=== PATIENT | female | born 1990 | race Caucasian/White ===

== ENCOUNTER 2018-06-04 13:25 | Emergency (ER) | payer OTHER, SELFPAY ==
[2018-06-04 13:29] VITALS: BP 110/71; PULSE 68; RESP 15; TEMP 36.2; O2SAT 100; BMI 25.0
--- NOTE | 2018-06-04 15:25 | ED.NECK ---
HPI - Neck Pain/Injury <Angie Medina PA-C - Last Filed: 06/04/18 21:43> General Chief Complaint: Neck Pain/Injury Stated Complaint: SWELLING AND PAIN ON LEFT SIDE OF NECK Time Seen by Provider: 06/04/18 15:25 Source: patient Mode of arrival: ambulatory Limitations: no limitations History of Present Illness HPI Narrative: This 27-year-old male comes in today due to increasing left-sided neck pain and swelling. She states that she was seen at another local ED less than 2 weeks ago due to worsening pain and swelling that had actually started about 2 months prior. She is being worked up for Tanner's thyroiditis, and states her TSH has been variable, last was 0.2 3 weeks ago. She states at her ED visit, she was told this was thyroiditis and told to start anti-inflammatory. She has been taking naproxen regularly but feels like this has gradually worsened, especially in the last couple of days. She states that she cannot sleep on that side due to the pain. She states that at times it radiates up into her ear. She denies any new trauma or recent illness or upper respiratory symptoms. She has not had fever. She has had ongoing palpitations with known PVCs since she was diagnosed with hyperthyroidism but states this has actually improved. She states that in addition to her PCP and recent endocrinology evaluation, she has been seeing a coal wheeler and was prescribed naltrexone at a low dose to help with antibody formation. She has been taking a number of herbal supplements for the last month as well. She has not started any new medications since then. She denies possibility of , states she has IUD in place Related Data Allergies Allergy/AdvReac Type Severity Reaction Status Date / Time No Known Drug Allergies Allergy Verified 06/04/18 13:29 Review of Systems <Angie Medina PA-C - Last Filed: 06/04/18 21:43> Review of Systems All systems reviewed & are unremarkable except as noted in HPI and below Exam <Angie Medina PA-C - Last Filed: 06/04/18 21:43> Narrative Exam Narrative: GENERAL APPEARANCE: Patient sitting comfortably, in no distress. HEAD: No sinus TTP. EYES: PERRL, EOMI. EARS: Normal auditory canals, TMS intact with normal light reflexes. ORAL CAVITY: Normal oropharynx. THROAT: Clear. NECK/THYROID: Neck supple, full range of motion, small anterior cervical nodes. Thyroid is larger on the left without discrete palpable nodule, tender in the L. upper pole LUNGS: Clear to auscultation bilaterally, no cough on exam. HEART: RRR without murmur, nl S1, S2, no S3 or S4. EXTREMITIES: No cyanosis or edema NEUROLOGIC: Patient is alert and oriented with normal speech and coordination Initial Vital Signs Initial Vital Signs: Vital Signs Temperature 97.2 F L 06/04/18 13:29 Pulse Rate 68 06/04/18 13:29 Respiratory Rate 15 06/04/18 13:29 Blood Pressure 110/71 06/04/18 13:29 Pulse Oximetry 100 06/04/18 13:29 <DO Zoila Fischer Last Filed: 06/05/18 07:25> Initial Vital Signs Initial Vital Signs: Vital Signs Temperature 97.2 F L 06/04/18 13:29 Pulse Rate 68 06/04/18 13:29 Respiratory Rate 15 06/04/18 13:29 Blood Pressure 110/71 06/04/18 13:29 Pulse Oximetry 100 06/04/18 13:29 Course <Angie Medina PA-C - Last Filed: 06/04/18 21:43> Additional Information: Patient is concerned with worsening pain and difficulty with sleeping on that side, especially in the last couple of days. No significant findings on exam, however elected ultrasound to evaluate for acute abscess or other pain source that may not be detected. None found per regulatory technician. After waiting a long time, she elected to discharge home and advised I would call her if any changes based on radiology report. She did call back for results later which were essentially normal. I advised her to increase her naproxen to 2 tabs b.i.d. and follow up with PCP next week. Orders Ordered: ED Orders 06/04/18 15:49 US thyroid Stat Vital Signs - 8 hr 06/04/18 16:20 06/04/18 17:28 Temperature 97.6 F 97.6 F Pulse Rate 50 L 49 L Respiratory Rate 16 16 Blood Pressure [Left Arm] 99/73 106/70 Pulse Oximetry 99 100 <DO Zoila Fischer Last Filed: 06/05/18 07:25> Orders Ordered: ED Orders 06/04/18 15:49 US thyroid Stat Vital Signs - 8 hr 06/04/18 16:20 06/04/18 17:28 Temperature 97.6 F 97.6 F Pulse Rate 50 L 49 L Respiratory Rate 16 16 Blood Pressure [Left Arm] 99/73 106/70 Pulse Oximetry 99 100 MDM - Neck Pain/Injury <Angie Medina PA-C - Last Filed: 06/04/18 21:43> Imaging Data thyroid: Radiologist's impression: View Report History [address] [address] Ultrasound Report Signed Patient: Tai West MR#: [id number] : 1990 Acct:[id number] Age/Sex: 27 / F Date of Service: 06/04/18 Loc: ED Accession Number: [id number] Procedure: US thyroid Ordering Provider: Angie Medina P.A-C PROCEDURE: US THYROID INDICATIONS: NODULARITY WITH WORSENING PAIN TECHNIQUE: Real-time scanning was performed of the thyroid gland, with image documentation. COMPARISON: None. FINDINGS: Right: Thyroid lobe measures 4.8 x 1.4 x 1.7 cm, and is homogeneous in echotexture. Left: Thyroid lobe measures 5.4 x 1.5 x 1.4 cm, and is homogenous in echotexture. Isthmus: 3-4 mm thick. No discrete thyroid nodules identified. No abnormality seen in the area of left neck pain IMPRESSION: No thyroid nodule. No sonographic mass or fluid collection seen in the area of left neck pain/palpable abnormality Dictated by: Devonte Edward M.D. on 06/04/2018 at 18:25 Approved by: Devonte Edward M.D. on 06/04/2018 at 18:27 Discharge Plan Departure Patient Disposition: Home, Self-Care Clinical Impression: Subacute thyroiditis Discharge Date/Time: 06/04/18 18:00 Interventions: ED Discharge Assessment Last Done: 06/04/18 18:00 Activity Restrictions/Additional Instructions: We know from your history that you have fluctuating thyroid hormone levels and thyroid inflammation. The biodiesel processing technician did not find any acute problems such as a mass or abscess or anything to explain your worsening pain today. The dose of Aleve that you have been on is likely not strong enough to help this inflammation. Please increase this to 2 tablets twice daily routinely. Call your PCP on Wednesday to set up follow-up as you may wish to consider a course of oral steroids if not improving. You should consider stopping your other medicines and natural supplements as it is not clear whether they could interfere with this. You should return if you have any acutely worsening symptoms such as difficulty speaking, new swelling or worsening pain. Referrals: Candis Sumner ARNP [Primary Care Provider] - <Javan Alexander DO - Last Filed: 06/05/18 07:25> Cosign ED Attending Enedina Attestation: I was available for consultation during this patient's emergency department encounter
--- NOTE | 2018-06-04 15:49 | DI.US.S_ITS ---
PROCEDURE: US THYROID INDICATIONS: NODULARITY WITH WORSENING PAIN TECHNIQUE: Real-time scanning was performed of the thyroid gland, with image documentation. COMPARISON: None. FINDINGS: Right: Thyroid lobe measures 4.8 x 1.4 x 1.7 cm, and is homogeneous in echotexture. Left: Thyroid lobe measures 5.4 x 1.5 x 1.4 cm, and is homogenous in echotexture. Isthmus: 3-4 mm thick. No discrete thyroid nodules identified. No abnormality seen in the area of left neck pain IMPRESSION: No thyroid nodule. No sonographic mass or fluid collection seen in the area of left neck pain/palpable abnormality Dictated by: Devonte Edward M.D. on 06/04/2018 at 18:25 Approved by: Devonte Edward M.D. on 06/04/2018 at 18:27
--- NOTE | 2018-06-04 15:52 | ED_ITS ---
HPI - Neck Pain/Injury <Angie Medina PA-C - Last Filed: 06/04/18 21:43> General Chief Complaint: Neck Pain/Injury Stated Complaint: SWELLING AND PAIN ON LEFT SIDE OF NECK Time Seen by Provider: 06/04/18 15:25 Source: patient Mode of arrival: ambulatory Limitations: no limitations History of Present Illness HPI Narrative: This 27-year-old male comes in today due to increasing left- sided neck pain and swelling. She states that she was seen at another local ED less than 2 weeks ago due to worsening pain and swelling that had actually started about 2 months prior. She is being worked up for Tanner's thyroiditis, and states her TSH has been variable, last was 0.2 3 weeks ago. She states at her ED visit, she was told this was thyroiditis and told to start anti-inflammatory. She has been taking naproxen regularly but feels like this has gradually worsened, especially in the last couple of days. She states that she cannot sleep on that side due to the pain. She states that at times it radiates up into her ear. She denies any new trauma or recent illness or upper respiratory symptoms. She has not had fever. She has had ongoing palpitations with known PVCs since she was diagnosed with hyperthyroidism but states this has actually improved. She states that in addition to her PCP and recent endocrinology evaluation, she has been seeing a behavioral health tech and was prescribed naltrexone at a low dose to help with antibody formation. She has been taking a number of herbal supplements for the last month as well. She has not started any new medications since then. She denies possibility of , states she has IUD in place Related Data Allergies Allergy/AdvReac Type Severity Reaction Status Date / Time No Known Drug Allergies Allergy Verified 06/04/18 13:29 Review of Systems <Angie Medina PA-C - Last Filed: 06/04/18 21:43> Review of Systems All systems reviewed & are unremarkable except as noted in HPI and below Exam <Angie Medina PA-C - Last Filed: 06/04/18 21:43> Narrative Exam Narrative: GENERAL APPEARANCE: Patient sitting comfortably, in no distress. HEAD: No sinus TTP. EYES: PERRL, EOMI. EARS: Normal auditory canals, TMS intact with normal light reflexes. ORAL CAVITY: Normal oropharynx. THROAT: Clear. NECK/THYROID: Neck supple, full range of motion, small anterior cervical nodes. Thyroid is larger on the left without discrete palpable nodule, tender in the L. upper pole LUNGS: Clear to auscultation bilaterally, no cough on exam. HEART: RRR without murmur, nl S1, S2, no S3 or S4. EXTREMITIES: No cyanosis or edema NEUROLOGIC: Patient is alert and oriented with normal speech and coordination Initial Vital Signs Initial Vital Signs: Vital Signs Temperature 97.2 F L 06/04/18 13:29 Pulse Rate 68 06/04/18 13:29 Respiratory Rate 15 06/04/18 13:29 Blood Pressure 110/71 06/04/18 13:29 Pulse Oximetry 100 06/04/18 13:29 <DO Zoila Fischer Last Filed: 06/05/18 07:25> Initial Vital Signs Initial Vital Signs: Vital Signs Temperature 97.2 F L 06/04/18 13:29 Pulse Rate 68 06/04/18 13:29 Respiratory Rate 15 06/04/18 13:29 Blood Pressure 110/71 06/04/18 13:29 Pulse Oximetry 100 06/04/18 13:29 Course <Angie Medina PA-C - Last Filed: 06/04/18 21:43> Additional Information: Patient is concerned with worsening pain and difficulty with sleeping on that side, especially in the last couple of days. No significant findings on exam, however elected ultrasound to evaluate for acute abscess or other pain source that may not be detected. None found per installation and repair technician. After waiting a long time, she elected to discharge home and advised I would call her if any changes based on radiology report. She did call back for results later which were essentially normal. I advised her to increase her naproxen to 2 tabs b.i.d. and follow up with PCP next week. Orders Ordered: ED Orders 06/04/18 15:49 US thyroid Stat Vital Signs - 8 hr 06/04/18 16:20 06/04/18 17:28 Temperature 97.6 F 97.6 F Pulse Rate 50 L 49 L Respiratory Rate 16 16 Blood Pressure [Left Arm] 99/73 106/70 Pulse Oximetry 99 100 <DO Zoila Fischer Last Filed: 06/05/18 07:25> Orders Ordered: ED Orders 06/04/18 15:49 US thyroid Stat Vital Signs - 8 hr 06/04/18 16:20 06/04/18 17:28 Temperature 97.6 F 97.6 F Pulse Rate 50 L 49 L Respiratory Rate 16 16 Blood Pressure [Left Arm] 99/73 106/70 Pulse Oximetry 99 100 MDM - Neck Pain/Injury <Angie Medina PA-C - Last Filed: 06/04/18 21:43> Imaging Data thyroid: Radiologist's impression: View Report History [address] [address] Ultrasound Report Signed Patient: Tai West MR#: [id number] : 1990 Acct:[id number] Age/Sex: 27 / F Date of Service: 06/04/18 Loc: ED Accession Number: [id number] Procedure: US thyroid Ordering Provider: Angie Medina P.A-C PROCEDURE: US THYROID INDICATIONS: NODULARITY WITH WORSENING PAIN TECHNIQUE: Real-time scanning was performed of the thyroid gland, with image documentation. COMPARISON: None. FINDINGS: Right: Thyroid lobe measures 4.8 x 1.4 x 1.7 cm, and is homogeneous in echotexture. Left: Thyroid lobe measures 5.4 x 1.5 x 1.4 cm, and is homogenous in echotexture. Isthmus: 3-4 mm thick. No discrete thyroid nodules identified. No abnormality seen in the area of left neck pain IMPRESSION: No thyroid nodule. No sonographic mass or fluid collection seen in the area of left neck pain/palpable abnormality Dictated by: Devonte Edward M.D. on 06/04/2018 at 18:25 Approved by: Devonte Edward M.D. on 06/04/2018 at 18:27 Discharge Plan Departure Patient Disposition: Home, Self-Care Clinical Impression: Subacute thyroiditis Discharge Date/Time: 06/04/18 18:00 Interventions: ED Discharge Assessment Last Done: 06/04/18 18:00 Activity Restrictions/Additional Instructions: We know from your history that you have fluctuating thyroid hormone levels and thyroid inflammation. The certified medical technician did not find any acute problems such as a mass or abscess or anything to explain your worsening pain today. The dose of Aleve that you have been on is likely not strong enough to help this inflammation. Please increase this to 2 tablets twice daily routinely. Call your PCP on Wednesday to set up follow-up as you may wish to consider a course of oral steroids if not improving. You should consider stopping your other medicines and natural supplements as it is not clear whether they could interfere with this. You should return if you have any acutely worsening symptoms such as difficulty speaking, new swelling or worsening pain. Referrals: Candis Sumner ARNP [Primary Care Provider] - <Javan Alexander DO - Last Filed: 06/05/18 07:25> Cosign ED Attending Ened[place] Attestation: I was available for consultation during this patient's emergency department encounter
[2018-06-04 16:20] VITALS: BP 99/73; PULSE 50; RESP 16; TEMP 36.4; O2SAT 99
[2018-06-04 17:28] VITALS: BP 106/70; PULSE 49; RESP 16; TEMP 36.4; O2SAT 100
== END 2018-06-04 18:00 | disposition home or self-care (01) ==
PROVIDERS: Emergency Provider Internal Medicine; PCP Nurse Practitioner Gerontology
DX: E06.1 Subacute thyroiditis (principal)
CPT/HCPCS: 76536; 99282; 99284